=== PATIENT | male | born 1990 | race Caucasian/White ===

== ENCOUNTER 2017-10-17 21:48 | Emergency (ER) | payer OTHER ==
[~2017-10-17] VITALS: Ht 180.3 cm; Wt 98.9 kg
[2017-10-17 21:55] VITALS: BP 131/80; Ht 180.3 cm; Wt 98.9 kg
== END 2017-10-17 23:26 | disposition left against medical advice (07) ==
LOC: ED 21:48
DX: Z53.21 Procedure and treatment not carried out due to patient leaving prior to being seen by health care provider (principal)